=== PATIENT | female | born 1970 ===

== ENCOUNTER 2017-03-17 18:33 | Emergency (ER) | payer OTHER, SELFPAY ==
[2017-03-17 18:40] VITALS: BMI 25.9
[2017-03-17] MEDS ORDERED: Sodium Chloride 0.9% 1,000 ML IV ONE (19:08)
--- NOTE | 2017-03-17 19:23 | C.PDOC ---
History Of Present Illness 46 year old female who presents to the ER with a complaint of dizziness and a syncopal episode earlier today. Patient reports feeling diaphoretic and nauseous at the time. Denies any injury, fever, or chills. Chief Complaint (Nursing): Dizziness/Lightheaded History Per: Patient History/Exam Limitations: no limitations Onset/Duration Of Symptoms: Hrs (Syncopal episode earlier today), Days (3 weeks of dizziness) Current Symptoms Are (Timing): Still Present Number Of Syncopal Episodes: 1 Activity At Onset Of Symptoms: Other (Not known) Associated Symptoms Preceding Syncopal Episode: Other (Dizziness) Seizure Or Post-ictal Symptoms: None Possible Causative Factor(s): Other (Not known) Fall Associated With With Symptoms: Yes, No Injury As Result Of Fall Recent travel outside of the [place]: No - Symptoms Of CVA Associated Symptoms: denies: Impaired Speech, Seizure Activity, New Vision Deficit(Left), New Vision Deficit(Right), Decreased Ability To Walk, New Confusion, Other Past Medical History Reviewed: Historical Data, Nursing Documentation, Vital Signs Vital Signs: Last Vital Signs Temp 97.8 F 03/17/17 21:13 Pulse 62 03/17/17 21:13 Resp 14 03/17/17 21:13 BP 117/70 03/17/17 21:13 Pulse Ox 98 03/17/17 21:19 - Medical History PMH: Hyperthyroidism Family History: States: Unknown Family Hx - Social History Hx Tobacco Use: No Hx Alcohol Use: No Hx Substance Use: No - Immunization History Hx Tetanus Toxoid Vaccination: No Hx Influenza Vaccination: No Hx Pneumococcal Vaccination: No Review Of Systems Constitutional: Positive for: Sweats. Negative for: Fever, Chills Cardiovascular: Negative for: Chest Pain, Palpitations Respiratory: Negative for: Shortness of Breath Gastrointestinal: Positive for: Nausea. Negative for: Vomiting Neurological: Positive for: Dizziness, Other (Syncope). Negative for: Weakness , Numbness Physical Exam - Physical Exam Appears: Non-toxic, Other (Alert, Conscious) Skin: Normal Color, Warm, Dry Head: Atraumatic, Normacephalic Oral Mucosa: Moist Chest: Symmetrical, No Tenderness Cardiovascular: Rhythm Regular, No Murmur Respiratory: Normal Breath Sounds, No Rales, No Rhonchi, No Wheezing Gastrointestinal/Abdominal: Soft, No Tenderness Extremity: Normal ROM (x4), No Tenderness Neurological/Psych: Oriented x3, Normal Speech, Normal Cognition, Normal Motor, Normal Sensation, Other (No focal deficits) Gait: Steady ED Course And Treatment - Laboratory Results Result Diagrams: 03/17/17 20:00 03/17/17 20:00 O2 Sat by Pulse Oximetry: 98 (Room air) Pulse Ox Interpretation: Normal - CT Scan/US Head CT Other Rad Studies (CT/US): Read By Radiologist, Radiology Report Reviewed CT/US Interpretation: EXAM: CT Head Without Intravenous Contrast. EXAM DATE/ TIME: 03/17/2017 7:07 PM. CLINICAL HISTORY: 46 years old, female; Pain and signs and symptoms; Dizziness; Headache; Headache not specified. TECHNIQUE: Axial computed tomography images of the head/brain without intravenous contrast. All CT scans at. this facility use one or more dose reduction techniques, viz.: automated exposure control; ma/kV. adjustment per patient size (including targeted exams where dose is matched to indication; i.e. head); . or iterative reconstruction technique. COMPARISON: No relevant prior studies available. FINDINGS: BRAIN: Small areas of CSF density at the base of the brain on the right, most likely representing. prominent perivascular spaces , a normal variant, versus old/chronic chronic lacunar infarcts.. Physiologic basal ganglia calcification. No significant acute abnormality identified. Normal leavitt-white matter differentiation. No acute. hemorrhage seen within the brain. No acute extra-axial fluid collections visualized. No evidence of. significant mass effect within the brain. VENTRICLES: No evidence of significant hydrocephalus. BONES/JOINTS: No acute fractures or other acute bony abnormality noted. SOFT TISSUES: No acute abnormality of the visualized soft tissues is seen. SINUSES: Visualized paranasal sinuses appear clear. MASTOID AIR CELLS: Mastoid air cells appear clear. IMPRESSION: - No acute findings seen within the brain. - See above for remaining findings. Progress Note: Head CT, EKG, blood work, and urinalysis ordered. Antivert, zofran, and IV fluids administered. Disposition Counseled Patient/Family Regarding: Diagnosis - Disposition Referrals: [facility] [Outside] Disposition: HOME/ ROUTINE Disposition Time: 20:50 Condition: STABLE Prescriptions: Ibuprofen [Motrin] 600 mg PO Q6 #20 tab Meclizine [Antivert] 12.5 mg PO Q6 #14 tab Nitrofurantoin Macrocrystals [Macrobid] 100 mg PO BID #14 cap Instructions: Urinary Tract Infection in Women (DC), Vertigo (ED), Dizziness ( ED), General Headache (ED) Forms: Gen Discharge Inst Kyrgyz, [employer] (Hebrew) Print Language: POLISH - POA Present On Arrival: None - Clinical Impression Clinical Impression: Dizziness, Vertigo, Head ache - Scribe Statement The provider has reviewed the documentation as recorded by the Scribrobert Worley All medical record entries made by the Newton were at my direction and personally dictated by me. I have reviewed the chart and agree that the record accurately reflects my personal performance of the history, physical exam, medical decision making, and the department course for this patient. I have also personally directed, reviewed, and agree with the discharge instructions and disposition.
[2017-03-17] MEDS ORDERED: Sodium Chloride 0.9% 250 ML IV ONE (19:38)
[2017-03-17] MEDS ORDERED: Sodium Chloride 0.9% 1,000 ML ONE (19:39)
[2017-03-17 20:07] LABS: BASO % 0.6 % (0.0-2.0); EOS # 0.2 K/uL (0.0-0.7); EOS % 3.1 % (0.0-4.0); HEMATOCRIT 38.4 % (34.0-47.0); LYMPH # 2.8 K/uL (1.0-4.3); LYMPH % 40.9 % (20.0-40.0); MEAN CELL VOLUME 87.7 fL (81.0-99.0); MEAN CORPUSCULAR HEMOGLOBIN 29.6 pg (27.0-31.0); MEAN CORPUSCULAR HGB CONC 33.8 g/dL (33.0-37.0); MONO # 0.5 K/uL (0.0-0.8); MONO % 6.9 % (0.0-10.0); RED CELL DISTRIBUTION WIDTH 13.5 % (11.5-14.5); WHITE BLOOD COUNT 6.7 K/uL (4.8-10.8)
[2017-03-17 20:12] LABS: RBC URINE 2 /hpf (0-3); TRANSITIONAL EPITHIAL 1 /hpf (0-3); URINE BACTERIA RARE (<OCC); URINE BILIRUBIN NEGATIVE (NEGATIVE); URINE BLOOD 2+ (NEGATIVE); URINE COLOR Straw (YELLOW); URINE GLUCOSE (UA) NORMAL (Normal); URINE KETONE NEGATIVE (NEGATIVE); URINE LEUKOCYTE ESTERASE 1+ Leu/uL (Negative); URINE PROTEIN NEGATIVE (NEGATIVE); URINE UROBILINOGEN NORMAL mg/dL (0.2-1.0); WBC URINE 11 /hpf (0-5)
[2017-03-17 20:15] LABS: CHLORIDE 102 mmol/L (98-107); SODIUM 142 mmol/L (132-148)
[2017-03-17 20:17] LABS: BILIRUBIN,TOTAL 0.5 mg/dL (0.2-1.3); GFR AFRICAN-AMERICAN > 60
[2017-03-17 20:18] LABS: ALB/GLOB RATIO 1.3 (1.0-2.1); ALKALINE PHOSPHATASE 65 U/L (38-126); ALT/SGPT 39 U/L (9-52); AST/SGOT 29 U/L (14-36); BLOOD UREA NITROGEN 18 mg/dL (7-17); CARBON DIOXIDE 29 mmol/L (22-30); GLUCOSE,RANDOM 93 mg/dL (65-105); TOTAL PROTEIN 8.3 g/dL (6.3-8.3)
[2017-03-17 20:19] LABS: CALCIUM 9.6 mg/dl (8.6-10.4)
--- NOTE | 2017-03-17 20:34 | CT ---
EXAM: CT Head Without Intravenous Contrast EXAM DATE/TIME: 03/17/2017 7:07 PM CLINICAL HISTORY: 46 years old, female; Pain and signs and symptoms; Dizziness; Headache; Headache not specified TECHNIQUE: Axial computed tomography images of the head/brain without intravenous contrast. All CT scans at this facility use one or more dose reduction techniques, viz.: automated exposure control; ma/kV adjustment per patient size (including targeted exams where dose is matched to indication; i.e. head); or iterative reconstruction technique. COMPARISON: No relevant prior studies available. FINDINGS: BRAIN: Small areas of CSF density at the base of the brain on the right, most likely representing prominent perivascular spaces, a normal variant, versus old/chronic chronic lacunar infarcts.. Physiologic basal ganglia calcification. No significant acute abnormality identified. Normal leavitt-white matter differentiation. No acute hemorrhage seen within the brain. No acute extra-axial fluid collections visualized. No evidence of significant mass effect within the brain. VENTRICLES: No evidence of significant hydrocephalus. BONES/JOINTS: No acute fractures or other acute bony abnormality noted. SOFT TISSUES: No acute abnormality of the visualized soft tissues is seen. SINUSES: Visualized paranasal sinuses appear clear. MASTOID AIR CELLS: Mastoid air cells appear clear. IMPRESSION: - No acute findings seen within the brain. - See above for remaining findings.
[2017-03-17 20:53] VITALS: O2SAT 98
[2017-03-17 21:25] VITALS: BP 117/70; PULSE 62; RESP 14; TEMP 97.8
== END 2017-03-17 21:25 | disposition home or self-care (01) ==
LOC: C.ER 18:33
DX: R42 Dizziness and giddiness (principal); R51 Headache
CPT/HCPCS: 70450; 80053; 81001; 84484; 84703; 85025; 96361; 96374; 99285; J2405; J7040

== ENCOUNTER 2017-08-11 13:41 | Emergency (ER) | payer OTHER ==
[2017-08-11 13:41] VITALS: BMI 25.9
--- NOTE | 2017-08-11 16:06 | C.PDOC ---
History Of Present Illness 47 y/o female, with PMHx of hypothyroidism, presents to ED c/o epigastric abdominal pain, and n/v/d for the past week. Denies blood in vomit or stool, back pain, dysuria, or hematuria. Time Seen by Provider: 08/11/17 16:03 Chief Complaint (Nursing): Abdominal Pain History Per: Patient History/Exam Limitations: no limitations Onset/Duration Of Symptoms: Days Current Symptoms Are (Timing): Still Present Location Of Pain/Discomfort: Epigastric Radiation Of Pain To:: None Past Medical History Reviewed: Historical Data, Nursing Documentation, Vital Signs Vital Signs: Last Vital Signs Temp 97.9 F 08/11/17 21:29 Pulse 60 08/11/17 21:29 Resp 18 08/11/17 21:29 BP 118/65 08/11/17 21:29 Pulse Ox 98 08/11/17 21:29 - Medical History PMH: Hypercholesterolemia, Hyperthyroidism, Hypothyroidism Surgical History: Appendectomy Family History: States: Unknown Family Hx - Social History Hx Tobacco Use: No Hx Alcohol Use: No Hx Substance Use: No - Immunization History Hx Tetanus Toxoid Vaccination: No Hx Influenza Vaccination: No Hx Pneumococcal Vaccination: No Review Of Systems Except As Marked, All Systems Reviewed And Found Negative. Constitutional: Negative for: Fever, Chills Gastrointestinal: Positive for: Nausea, Vomiting, Abdominal Pain, Diarrhea. Negative for: Constipation, Melena, Hematochezia, Hematemesis Genitourinary: Negative for: Dysuria, Frequency, Hematuria, Vaginal Discharge Musculoskeletal: Negative for: Back Pain Physical Exam - Physical Exam Appears: Non-toxic, No Acute Distress Skin: Normal Color, Warm, Dry Head: Atraumatic, Normacephalic Eye(s): bilateral: Normal Inspection Oral Mucosa: Moist Neck: Supple Cardiovascular: Rhythm Regular Respiratory: Normal Breath Sounds, No Rales, No Rhonchi, No Wheezing Gastrointestinal/Abdominal: Soft, Tenderness (epigastric), No Guarding, No Rebound Back: No CVA Tenderness Extremity: Normal ROM, No Deformity Neurological/Psych: Oriented x3, Normal Speech ED Course And Treatment - Laboratory Results Result Diagrams: 08/11/17 17:09 08/11/17 16:48 O2 Sat by Pulse Oximetry: 99 Medical Decision Making Medical Decision Making: abd pain consider gastritis pancreatitis pud- labs imaging pendig pt reassesed persistent pain so ct added. ct neg, labs unremarkable. pain improved. pt asking for dc. outpt fu and return precautions advised. Disposition - Disposition Referrals: Sachin Arteaga MD [Staff Provider] - Disposition: HOME/ ROUTINE Disposition Time: 09:00 Condition: STABLE Additional Instructions: return to er with worsening symptoms or concerns. please see specialist. Prescriptions: Famotidine [Pepcid] 20 mg PO DAILY #20 tab Instructions: Acute Abdominal Pain (ED) Forms: [employer] (Emirati) - Clinical Impression Clinical Impression: Abdominal pain - Scribe Statement The provider has reviewed the documentation as recorded by the Scribe Hao Rodriguez All medical record entries made by the Scribe were at my direction and personally dictated by me. I have reviewed the chart and agree that the record accurately reflects my personal performance of the history, physical exam, medical decision making, and the department course for this patient. I have also personally directed, reviewed, and agree with the discharge instructions and disposition.
[2017-08-11] MEDS ORDERED: Sodium Chloride 0.9% 1,000 ML IV ONE (16:09)
[2017-08-11] MEDS ORDERED: Sodium Chloride 0.9% 1,000 ML ONE (16:27)
[2017-08-11 16:55] LABS: SQUAMOUS EPITHIAL 2 /hpf (0-5); URINE BACTERIA RARE (<OCC); URINE BILIRUBIN NEGATIVE (NEGATIVE); URINE BLOOD 1+ (NEGATIVE); URINE CLARITY Clear (Clear); URINE COLOR Yellow (YELLOW); URINE GLUCOSE (UA) NORMAL (Normal); URINE LEUKOCYTE ESTERASE NEG Leu/uL (Negative); URINE NITRATE NEGATIVE (NEGATIVE); URINE PROTEIN NEGATIVE (NEGATIVE); URINE UROBILINOGEN NORMAL mg/dL (0.2-1.0)
[2017-08-11 17:06] LABS: ALB/GLOB RATIO 1.2 (1.0-2.1); ALBUMIN 4.4 g/dL (3.5-5.0); CALCIUM 9.6 mg/dl (8.6-10.4); GFR AFRICAN-AMERICAN > 60; GFR NON-AFRICAN AMERICAN > 60; LIPASE 99 U/L (23-300)
[2017-08-11 17:10] LABS: ALT/SGPT 31 U/L (9-52); AST/SGOT 32 U/L (14-36); BLOOD UREA NITROGEN 20 mg/dL (7-17)
[2017-08-11 17:17] LABS: BASO % 0.6 % (0.0-2.0); EOS # 0.1 K/uL (0.0-0.7); EOS % 1.9 % (0.0-4.0); HEMOGLOBIN 11.6 g/dL (11.0-16.0); LYMPH # 2.9 K/uL (1.0-4.3); LYMPH % 39.9 % (20.0-40.0); MEAN CELL VOLUME 88.3 fL (81.0-99.0); MEAN CORPUSCULAR HEMOGLOBIN 30.1 pg (27.0-31.0); MEAN CORPUSCULAR HGB CONC 34.1 g/dL (33.0-37.0); MEAN PLATELET VOLUME 7.9 fL (7.2-11.7); MONO # 0.4 K/uL (0.0-0.8); MONO % 5.9 % (0.0-10.0); NEUT # 3.7 K/uL (1.8-7.0); NEUT % 51.7 % (50.0-75.0); RBC 3.86 Mil/uL (3.80-5.20); RED CELL DISTRIBUTION WIDTH 12.7 % (11.5-14.5); WHITE BLOOD COUNT 7.2 K/uL (4.8-10.8)
[2017-08-11 17:25] LABS: PROTHROMBIN TIME 10.6 SECONDS (9.7-12.2)
[2017-08-11] MEDS ORDERED: Aluminum Hydroxide/Magnesium Hydroxide Susp (30 mL) PO STA (17:25)
[2017-08-11] MEDS ORDERED: Belladonna-Phenobarbital PO STA (17:25)
[2017-08-11] MEDS ORDERED: Belladonna-Phenobarbital ONE (17:43)
[2017-08-11] MEDS ORDERED: Aluminum Hydroxide/Magnesium Hydroxide Susp (30 mL) ONE (17:44)
[2017-08-11] MEDS ORDERED: Iodixanol 320 MG/ML 100 ML BOTTLE IV ONE (18:16)
--- NOTE | 2017-08-11 20:57 | CT ---
EXAM: CT Abdomen and Pelvis With Intravenous Contrast EXAM DATE/TIME: 08/11/2017 5:31 PM CLINICAL HISTORY: 47 years old, female; Pain; Abdominal pain; Flank; Upper; Additional info: Upper abd pain, n/v/d TECHNIQUE: Axial computed tomography images of the abdomen and pelvis with intravenous contrast. All CT scans at this facility use one or more dose reduction techniques, viz.: automated exposure control; ma/kV adjustment per patient size (including targeted exams where dose is matched to indication; i.e. head); or iterative reconstruction technique. Coronal and sagittal reformatted images were created and reviewed. CONTRAST: 100 mL of VISIPAQUE 320 administered intravenously. COMPARISON: There are no prior studies for comparison. FINDINGS: Lower thorax: Heart size is normal. There is atelectasis and scarring at the lung bases ABDOMEN: Liver: There is fatty infiltration of the liver. Liver is mildly enlarged. 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 Stomach and bowel: Stomach is almost empty. Rotation is normal. Small bowel is mildly distended with fluid and air. There is no obstruction. Terminal ileum is unremarkable. Appendix is not visualized.There is no pericecal inflammation. Colon is incompletely distended which limits evaluation. There is scattered diverticulosis Appendix: See stomach and bowel PELVIS: Bladder: Bladder is incompletely distended. There is mild bladder wall prominence. Reproductive: Uterus is mildly prominent. There is a 3.2 x 2.7 cm left myometrial partially enhancing mass. Left adnexal l structures are unremarkable. There is a 3.4 x 2.7 x 3.9 cm right adnexal cyst. ABDOMEN and PELVIS: Intraperitoneal space: There is no free air or free fluid. Bones/joints: There are degenerative changes in the osseus structures. Soft tissues: There is a small fat containing umbilical hernia. Vasculature: There are multiple phleboliths. Aorta and inferior vena cava are unremarkable. There are prominent gonadal veins in the right Ureter and Lymph nodes: There is no pathologic adenopathy. IMPRESSION: Mildly enlarged fatty liver, no acute solid visceral abnormality; right adnexal cyst; heterogeneously enhancing uterine mass likely fibroid; nonvisualization of the appendix but no CT findings of appendicitis; possible mild ileus, no obstruction Additional nonemergent findings as described above.
[2017-08-11 21:30] VITALS: BP 118/65; PULSE 60; RESP 18; TEMP 97.9
[2017-08-11 21:45] VITALS: O2SAT 99
== END 2017-08-11 21:37 | disposition home or self-care (01) ==
LOC: C.ER 13:41
DX: R10.13 Epigastric pain (principal)
CPT/HCPCS: 74177; 80053; 81001; 83690; 84703; 85025; 85610; 85730; 96361; 96374; 96375; 99285; C9113; J2405; J7040; Q9967

== ENCOUNTER 2017-08-25 15:06 | Emergency (ER) | payer OTHER ==
[2017-08-25 15:06] VITALS: BMI 25.9
[2017-08-25 16:55] VITALS: BP 122/78; PULSE 84; RESP 16; TEMP 99.9; O2SAT 98
--- NOTE | 2017-08-25 17:48 | C.PDOC ---
History Of Present Illness 47 y/o female presents to the ED for evaluation of diffuse body aches, subjective fever, nonproductive cough which began yesterday. Patient admits to sick contacts and states she did not get her flu shot this year. She denies shortness of breath, nausea, vomiting, and recent travel. Chief Complaint (Nursing): Flu-like Symptoms History Per: Patient History/Exam Limitations: no limitations Onset/Duration Of Symptoms: Hrs Current Symptoms Are (Timing): Still Present Location Of Pain: Diffuse Myalgias Sick Contacts (Context): Friend(s) Associated Symptoms: Fever, Cough. denies: Sputum, Nausea, Vomiting Additional History Per: Patient Past Medical History Reviewed: Historical Data, Nursing Documentation, Vital Signs Vital Signs: Last Vital Signs Temp 99.9 F H 08/25/17 16:54 Pulse 84 08/25/17 16:54 Resp 16 08/25/17 16:54 BP 122/78 08/25/17 16:54 Pulse Ox 98 08/25/17 17:55 - Medical History PMH: Hypercholesterolemia, Hyperthyroidism, Hypothyroidism Surgical History: Appendectomy Family History: States: Unknown Family Hx - Social History Hx Tobacco Use: No Hx Alcohol Use: No Hx Substance Use: No - Immunization History Hx Tetanus Toxoid Vaccination: No Hx Influenza Vaccination: No Hx Pneumococcal Vaccination: No Review Of Systems Constitutional: Positive for: Fever Respiratory: Positive for: Cough. Negative for: Shortness of Breath, Sputum Gastrointestinal: Negative for: Nausea, Vomiting Musculoskeletal: Positive for: Other (diffuse body aches ) Physical Exam - Physical Exam Appears: Non-toxic, No Acute Distress Skin: Normal Color, Warm, Dry Head: Atraumatic, Normacephalic Eye(s): bilateral: Normal Inspection Ear(s): Bilateral: Normal Nose: Normal, No Discharge Oral Mucosa: Moist Throat: Normal, No Erythema, No Exudate Neck: Supple Chest: Symmetrical, No Deformity, No Tenderness Cardiovascular: Rhythm Regular, No Murmur Respiratory: Normal Breath Sounds, No Rales, No Rhonchi, No Wheezing Extremity: Normal ROM, Capillary Refill (less than 2 seconds ) Neurological/Psych: Oriented x3, Normal Speech, Normal Cognition Gait: Steady ED Course And Treatment O2 Sat by Pulse Oximetry: 98 (on RA) Pulse Ox Interpretation: Normal Medical Decision Making Medical Decision Making: Progress: Tylenol PO administered. On reassessment, patient is resting comfortably, showing no signs of distress and is stable for discharge. Patient is advised to f/u with her PMD within a timely manner for further evaluation. Disposition - Disposition Referrals: Regan Sutton, [Non-Staff] - Disposition: HOME/ ROUTINE Disposition Time: 16:30 Condition: GOOD Additional Instructions: Thank you for letting us take care of you today. The emergency medical care you received today was directed at your acute symptoms. If you were prescribed any medication, please fill it and take as directed. It may take several days for your symptoms to resolve. Return to the Emergency Department if your symptoms worsen, do not improve, or if you have any other problems. Please contact your doctor or call one of the physicians/clinics you have been referred to that are listed on the Patient Visit Information form that is included in your discharge packet. Bring any paperwork you were given at discharge with you along with any medications you are taking to your follow up visit. Our treatment cannot replace ongoing medical care by a primary care provider (PCP) outside of the emergency department. Thank you for allowing the [facility] team to be part of your care today. Follow up with your doctor in 3-4 days for re-evaluation and further management. Selene por dejarnos atenderlo hoy. La atencin mdica de emergencia que recibi hoy estaba dirigida a daniela sntomas agudos. Si le prescribieron algn medicamento, llnelo y tome segn las indicaciones. Daniela sntomas pueden tardar varios staples en resolverse. Regrese al Departamento de Emergencia si daniela s ntomas empeoran, no mejoran o si tiene algn otro problema. Comunquese con silva mdico o llame a aditya de los mdicos / clnicas a los que scott sido referido que figura en el formulario de Informacin de visita del paciente que se incluye en silva paquete de simi. Traiga todos los documentos que recibi al momento del simi junto con los medicamentos que est tomando en silva visita de seguimiento. Nuestro tratamiento no puede reemplazar la atencin mdica en curso por parte de un proveedor de atencin primaria (PCP) fuera del departamento de emergencias. Selene por permitir que el equipo de [facility] sea parte de silva cuidado hoy. Fadi un seguimiento con silva mdico en 3-4 staples para elder reevaluacin y administracin adicional. Prescriptions: Ibuprofen [Motrin] 600 mg PO Q6 PRN #20 tab PRN Reason: Pain, Moderate (4-7) Oseltamivir Phosphate [Tamiflu] 75 mg PO BID #10 capsule Instructions: Influenza (ED) Forms: Gen Discharge Inst Liberian Print Language: LITHUANIAN - Clinical Impression Clinical Impression: Influenza-like illness - Scribe Statement The provider has reviewed the documentation as recorded by the Scribe (Iveth Rodriguez) Provider Attestation: All medical record entries made by the Scribe were at my direction and personally dictated by me. I have reviewed the chart and agree that the record accurately reflects my personal performance of the history, physical exam, medical decision making, and the department course for this patient. I have also personally directed, reviewed, and agree with the discharge instructions and disposition.
== END 2017-08-25 16:54 | disposition home or self-care (01) ==
LOC: C.ER 15:06
DX: J11.1 Influenza due to unidentified influenza virus with other respiratory manifestations (principal); E78.00 Pure hypercholesterolemia, unspecified